=== PATIENT | male | born 1985 | race African-American/Black ===

== ENCOUNTER 2017-03-08 13:13 | Emergency (ER) | payer OTHER ==
[~2017-03-08] VITALS: Ht 175.3 cm; Wt 80.3 kg
[2017-03-08 13:16] VITALS: BP 122/81
[2017-03-08] MEDS ORDERED: ACETAMINOPHEN-1 EAC1 ORAL (13:19)
--- NOTE | 2017-03-08 14:14 | Emergency Room Report ---
History of Present Illness General Chief Complaint: Pain Source: Patient, Family Member Present Illness HPI 32 YO Male presents to the ED c/o History of chronic left hip pain required surgery at the age of 14 ,and had another surgery in 2001 where they placed bone graft. Pt having 10/10 in severity pain exacerbation in the left hip. patient recently has taken Tylenol No. 3 with no relief he has not followed up with his PMD denies new trauma or fall denies clicking denies erythema or increased temperature palpation denies fevers chills or swollen tender lymph nodes. Allergies: Coded Allergies: No Known Allergies (Unverified , 03/08/17) Patient History Past Medical History: see triage record Past Surgical History: none Pertinent Family History: none Reviewed Nursing Documentation: PMH: Agreed, PSxH: Agreed Review of Systems All Other Systems: negative except mentioned in HPI Physical Exam Vital Signs Date Time Temp Pulse Resp B/P (MAP) Pulse Ox O2 Delivery O2 Flow Rate FiO2 03/08/17 13:16 97.9 73 13 122/81 100 Room Air Sp02 EP Interpretation: reviewed, normal General Appearance: no apparent distress, alert, GCS 15, non-toxic Head: normocephalic, atraumatic Eyes: bilateral eye normal inspection, bilateral eye PERRL ENT: hearing grossly normal, normal voice Neck: full range of motion Respiratory: lungs clear, normal breath sounds, speaking full sentences Cardiovascular #1: regular rate, rhythm Rectal: deferred Musculoskeletal: back normal, gait/station normal, normal range of motion, tender - lateral ttp to the left hip mainly in the thigh muscle, FROM, ambulating FROM with pain. no erythema, carol old surgical scar noted. Neurologic: alert, oriented x3, responsive, motor strength/tone normal, sensory intact, normal gait, speech normal Skin: normal color, no rash, warm/dry, well hydrated Medical Decision Making PA Attestation Dr. palomino is my supervising Physician whom patient management has been discussed with. Diagnostic Impression: Primary Impression: Chronic left hip pain ER Course 32 YO Male presents to the ED c/o History of chronic left hip pain required surgery at the age of 14 ,and had another surgery in 2001 where they placed bone graft. Pt having 10/10 in severity pain exacerbation in the left hip. patient recently has taken Tylenol No. 3 with no relief he has not followed up with his PMD denies new trauma or fall denies clicking denies erythema or increased temperature palpation denies fevers chills or swollen tender lymph nodes. Ddx considered but are not limited to Fracture, dislocation, contusion, Sprain/ Strain/Spasm. just to name a few. Vital signs: are WNL, pt. is afebrile H&PE are most consistent with exacerbation of chronic hip pain, no evidence of D /L, infection or obvious deformity. ORDERS: - X-ray -Not indicated at this time no acute trauma. ED INTERVENTIONS: I do not suspect an emergent condition at this time. With current presentation, pt. is stable for close outpatient follow up and conservative treatment. D/w pt. to return promptly to ED with worsening or new symptoms.- Pt. (and or responsible democrat) verbalizes' understanding and agreement with proposed treatment plan. DISCHARGE: At this time pt. is stable for d/c to home. Will provide printed patient care instructions, and any necessary prescriptions. Care plan and follow up instructions have been discussed with the patient prior to discharge. Last Vital Signs Date Time Temp Pulse Resp B/P (MAP) Pulse Ox O2 Delivery O2 Flow Rate FiO2 03/08/17 13:16 97.9 73 13 122/81 100 Room Air Disposition: HOME, SELF-CARE Condition: Stable Scripts Ibuprofen* (MOTRIN*) 600 Mg Tablet 600 MG ORAL THREE TIMES A DAY, #30 TAB 0 Refills Prov: Lou Garcia 03/08/17 Lidocaine (Lidoderm) 1 Each Adh..patch 1 PATCH TOPIC DAILY, #25 PATCH 0 Refills Patch(es) may remain in place for up to 12 hours in any 24-hour period. Prov: Lou Garcia 03/08/17 Patient Instructions: Chronic Pain Additional Instructions: Take medications as directed. Follow up with a Primary Care Provider in 3-5 days, even if your symptoms have resolved. May require Orthopedic eval. or chronic pain management referral. --Please review list of primary care clinics, if you do not already have a primary care provider Return sooner to ED if new symptoms occur, or current symptoms become worse. - Please note that this Emergency Department Report was dictated using [employer] customer service representative technology software, occasionally this can lead to erroneous entry secondary to interpretation by the dictation equipment. Lou Garcia Mar 08, 2017 14:14
[2017-03-08] MEDS ORDERED: LIDODERM700 M1 TOPIC (14:15)
[2017-03-08] MEDS ORDERED: IBUPROFEN600 MG ORAL (14:15)
[2017-03-08] MEDS ORDERED: Ketorolac 60mg Inj IM ONE (14:15)
[2017-03-08 14:29] VITALS: BP 122/81
== END 2017-03-08 14:47 | disposition home or self-care (01) ==
LOC: EMR 13:52
DX: G89.29 Other chronic pain (principal); M25.552 Pain in left hip
CPT/HCPCS: 96372; 99283

== ENCOUNTER 2017-06-06 09:38 | Inpatient (IN) | payer OTHER ==
[2017-06-06] VITALS (9 sets, daily range): BP systolic 102–158; BP diastolic 62–86
[~2017-06-06] VITALS: Ht 175.3 cm; Wt 81.2 kg
[~2017-06-06 09:38] MED LIST: ACETAMINOPHEN-1 EAC1 ORAL; Dexamethasone 4mg/ml vial ONE; IBUPROFEN600 MG ORAL; LIDODERM700 M1 TOPIC; LR 1000ml ONE; Lidocaine 1% MPF 10mg/ml 5ml ONE; Midazolam 2mg/2ml Inj ONE; NS Irrig 1000ml ONE; Propofol 200mg/20ml IV ONE; Sterile Water Irrig 1000ml IRRIG ONE; fentaNYL 100 mcg/2 mL IV ONE
[2017-06-06] MEDS ORDERED: Ketorolac 60mg Inj IM ONE (10:15)
[2017-06-06] MEDS ORDERED: HYDROcodone/Acetamin 10/325 tab ORAL ONE (10:15)
--- NOTE | 2017-06-06 10:19 | Emergency Room Report ---
History of Present Illness General Chief Complaint: Male Urogenital Problems Source: Patient Present Illness HPI Patient presents with complaints of right testicular pain Also right hip pain and suprapubic discomfort Patient reports that he has not been sexually active over the past several months Denies any chest pain or short of breath denies any vomiting or diarrhea Initially patient did not report any history however after review of medical records and talking to the patient he now reports previous hip surgery And grafting Denies any trauma to the testicle Reports onset of pain was approximately 9:30 to 10 AM Allergies: Coded Allergies: No Known Allergies (Unverified , 03/08/17) Patient History Past Medical History: see triage record Pertinent Family History: none Reviewed Nursing Documentation: PMH: Agreed, PSxH: Agreed Nursing Documentation-PMH Past Medical History: No History, Except For Review of Systems All Other Systems: negative except mentioned in HPI Physical Exam Vital Signs Date Time Temp Pulse Resp B/P (MAP) Pulse Ox O2 Delivery O2 Flow Rate FiO2 06/06/17 09:39 97.0 49 22 158/74 98 Room Air 97.0 Sp02 EP Interpretation: reviewed, normal General Appearance: mild distress - Appears uncomfortable Head: normocephalic, atraumatic Eyes: bilateral eye PERRL, bilateral eye EOMI ENT: hearing grossly normal, normal pharynx Neck: full range of motion, supple Respiratory: chest non-tender, lungs clear Cardiovascular #1: regular rate, rhythm Gastrointestinal: non tender, soft Genitourinary: no CVA tenderness, other - Circumcised, tender on palpation of the right testicle, cremaster reflexes intact,however mild higher riding testicle on right Musculoskeletal: normal inspection Neurologic: alert, oriented x3, responsive Skin: normal color, no rash Lymphatic: no adenopathy Medical Decision Making Diagnostic Impression: Primary Impression: Testicular torsion ER Course Given the patient's presentation multiple differentials are considered Was concerning differential is testicular torsion Urethritis, epididymitis also entertained Given the patient's discomfort ultrasound was ordered upon arrival Speaking to the durable medical equipment technician that are concerning findings of torsion Case is discussed with urology Patient requiring emergency intervention All appropriate contacts are made and patient getting set for emergency surgery Patient provided with pain medication Attempt of detorsion is made without significant improvement And patient emergently transferred to OR for acute intervention Labs Test 06/06/17 10:45 06/06/17 11:30 Urine Color Yellow Urine Appearance Clear Urine pH 7 (4.5-8.0) Urine Specific [place] 1.015 (1.005-1.035) Urine Protein 2+ (NEGATIVE) Urine Glucose (UA) Negative (NEGATIVE) Urine Ketones 3+ (NEGATIVE) Urine Occult Blood Negative (NEGATIVE) Urine Nitrite Negative (NEGATIVE) Urine Bilirubin Negative (NEGATIVE) Urine Urobilinogen 1 MG/DL (0.0-1.0) Urine Leukocyte Esterase 1+ (NEGATIVE) Urine RBC 0-2 /HPF (0 - 0) Urine WBC 0-2 /HPF (0 - 0) Urine Squamous Epithelial Cells Occasional /LPF Urine Amorphous Sediment Occasional /LPF (NONE) Urine Bacteria Occasional /HPF (NONE) Urine Mucus Few /LPF (NONE/OCC) CT/MRI/US Diagnostic Results CT/MRI/US Diagnostic Results : Impression testicular ultrasoundIMPRESSION: Asymmetric engorgement of the right testicle with small right hydrocele and lack of definite color/power Doppler flow to the right testicle. Findings highly concerning for a right-sided testicular torsion, especially given history of severe right- sided testicular pain. Urology consult recommended. Findings discussed with Dr. Chan of the ED at approximately 11:10 AM. Last Vital Signs Date Time Temp Pulse Resp B/P (MAP) Pulse Ox O2 Delivery O2 Flow Rate FiO2 06/06/17 09:39 97.0 49 22 158/74 98 Room Air 97.0 Status: unchanged Disposition: ADMITTED INPATIENT Condition: Critical John Chan DO Jun 06, 2017 10:19
[2017-06-06 11:08] LABS: APPEARANCE,URINE CLEAR; BILIRUBIN, URINE NEGATIVE (NEGATIVE); GLUCOSE, URINE (UA) NEGATIVE (NEGATIVE); KETONES,URINE 3+ (NEGATIVE); LEUKOCYTE ESTERASE ,URINE 1+ (NEGATIVE); NITRITE,URINE NEGATIVE (NEGATIVE); PH,URINE 7 (4.5-8.0); PROTEIN,URINE 2+ (NEGATIVE); UROBILINOGEN,URINE 1 MG/DL (0.0-1.0)
[2017-06-06 11:15] LABS: COLOR,URINE YELLOW
[2017-06-06] MEDS ORDERED: HYDROmorphone 1mg/ml Carpuject IVP ONE (11:30)
--- NOTE | 2017-06-06 11:36 | Diagnostic Imaging Report ---
Indication: Right testicular pain Technique: With the plantar grayscale and color Doppler imaging of the testicles/scrotum Comparison: None Findings: There is asymmetric enlargement of the right testicle. The right testicle measures 4.4 x 2.5 x 3.1 cm. The left testicle measures 3.3 x 2 x 3 cm. There is a small right hydrocele. There is asymmetric flow to the testicles on raphae view, with power Doppler flow noted on the left and none noted on the right (image 4). No definite color or power Doppler flow is demonstrated to the right testicle on dedicated views. No arterial or venous waveforms can be identified in the right testicle. This is in contrast to color/power Doppler imaging of the left testicle which documents normal color/power Doppler flow. No hydrocele is noted on the left. No testicular masses are seen bilaterally. IMPRESSION: Asymmetric engorgement of the right testicle with small right hydrocele and lack of definite color/power Doppler flow to the right testicle. Findings highly concerning for a right-sided testicular torsion, especially given history of severe right-sided testicular pain. Urology consult recommended. Findings discussed with Dr. Chan of the ED at approximately 11:10 AM.
[2017-06-06 12:13] LABS: BASOPHILS % (AUTO) 0.7 % (0.0-2.0); EOSINOPHILS % (AUTO) 0.3 % (0.0-3.0); HEMATOCRIT 45.6 % (42.0-52.0); HEMOGLOBIN 15.2 G/DL (14.2-18.0); LYMPHOCYTES % (AUTO) 19.3 % (20.0-45.0); MEAN CORPUSCULAR VOLUME 99 FL (80-99); MONOCYTES % (AUTO) 7.7 % (1.0-10.0); PLATELET COUNT 164 K/UL (150-450); RED BLOOD COUNT 4.58 M/UL (4.70-6.10); WHITE BLOOD COUNT 6.7 K/UL (4.8-10.8)
[2017-06-06] MEDS ORDERED: Morphine Sulfate 4mg/ml Inj IVP ONE (12:15)
[2017-06-06 12:22] LABS: ANION GAP 8 mmol/L (5-15); BLOOD UREA NITROGEN 16 mg/dL (7-18); CALCIUM 8.6 MG/DL (8.5-10.1); CARBON DIOXIDE 28 MMOL/L (21-32); CHLORIDE 104 MMOL/L (98-107); CREATININE 1.3 MG/DL (0.55-1.30); SODIUM 140 MMOL/L (136-145)
[2017-06-06] MEDS ORDERED: NeoSporin Gu Irrig 1ml Amp IRRIG ONE (12:23)
[2017-06-06] MEDS ORDERED: Bacitracin 50000 Units Vial ONE (12:23)
--- NOTE | 2017-06-06 12:39 | Pre-Procedure Note/Attestation ---
Pre-Procedure Note/Attestation Complete Prior to Procedure Planned Procedure: right Procedure Narrative: right orchidopexy vs right orchiectomy Indications for Procedure Pre-Operative Diagnosis: right testicular torsion Attestation I attest that I discussed the nature of the procedure; its benefits; risks and complications; and alternatives (and the risks and benefits of such alternatives ), prior to the procedure, with the patient (or the patient's legal payable representative). I attest that, if there was a reasonable possibility of needing a blood transfusion, the patient (or the patient's legal payable representative) was given the [facility] standardized written summary, pursuant to the [place] Blood Safety Act ([place] Health and Safety Code # 1645, as amended). I attest that I re-evaluated the patient just prior to the surgery and that there has been no change in the patient's H&P, except as documented below: Varun Aragon MD Jun 06, 2017 12:39
[2017-06-06] MEDS ORDERED: LR 1000ml 1,000 ML IVLG SCH (13:01)
--- NOTE | 2017-06-06 13:01 | Anethesia Preoperative Eval ---
Anesthesia Pre-op PMH/ROS General Date of Evaluation: Jun 06, 2017 Time of Evaluation: 12:31 Anesthesiologist: Alirio ASA Score: ASA 2 - Emergency Mallampati Score Class I : Soft palate, uvula, fauces, pillars visible Class II: Soft palate, uvula, fauces visible Class III: Soft palate, base of uvula visible Class IV: Only hard plate visible Mallampati Classification: Class I Surgeon: Mahesh Diagnosis: Testcular Torsion Surgical Procedure: Repair Of R Ruptured Testicle Anesthesia History: none Family History: no anesthesia problems Allergies: Coded Allergies: No Known Allergies (Unverified , 03/08/17) Medications: see eMAR Past Medical History PSxH Narrative: L Hip SX Anesthesia Pre-op Phys. Exam Physician Exam Last Vital Signs Date Time Temp Pulse Resp B/P (MAP) Pulse Ox O2 Delivery O2 Flow Rate FiO2 06/06/17 12:12 97.0 06/06/17 10:20 22 158/74 98 Room Air 06/06/17 09:39 49 Constitutional: NAD Neurologic: CN 2-12 intact Cardiovascular: RRR Respiratory: CTA Gastrointestinal: S/NT/ND Airway Exam Mallampati Score: Class I MO: full ROM: full Teeth: missing, intact Anesthesia Pre-op A/P Labs Hematology Test 06/06/17 11:30 White Blood Count 6.7 K/UL (4.8-10.8) Red Blood Count 4.58 M/UL (4.70-6.10) L Hemoglobin 15.2 G/DL (14.2-18.0) Hematocrit 45.6 % (42.0-52.0) Mean Corpuscular Volume 99 FL (80-99) Mean Corpuscular Hemoglobin 33.3 PG (27.0-31.0) H Mean Corpuscular Hemoglobin Concent 33.4 G/DL (32.0-36.0) Red Cell Distribution Width 11.0 % (11.6-14.8) L Platelet Count 164 K/UL (150-450) Mean Platelet Volume 10.3 FL (6.5-10.1) H Neutrophils (%) (Auto) 72.0 % (45.0-75.0) Lymphocytes (%) (Auto) 19.3 % (20.0-45.0) L Monocytes (%) (Auto) 7.7 % (1.0-10.0) Eosinophils (%) (Auto) 0.3 % (0.0-3.0) Basophils (%) (Auto) 0.7 % (0.0-2.0) Coagulation Test 06/06/17 11:30 Prothrombin Time 10.0 SEC (9.30-11.50) Prothromb Time International Ratio 1.0 (0.9-1.1) Chemistry Test 06/06/17 11:30 Sodium Level 140 MMOL/L (136-145) Potassium Level 4.0 MMOL/L (3.5-5.1) Chloride Level 104 MMOL/L (98-107) Carbon Dioxide Level 28 MMOL/L (21-32) Anion Gap 8 mmol/L (5-15) Blood Urea Nitrogen 16 mg/dL (7-18) Creatinine 1.3 MG/DL (0.55-1.30) Estimat Glomerular Filtration Rate > 60 mL/min (>60) Glucose Level 114 MG/DL (74-106) H Calcium Level 8.6 MG/DL (8.5-10.1) Risk Assessment & Plan Assessment: ASA 2E Plan: GA, BIS Status Change Before Surgery: No Pre-Antibiotics Dru Grams Ancef IV Given Within 1 Hr of Incision: Yes Time Given: 12:41 Iain Amezquita MD Jun 06, 2017 13:00
--- NOTE | 2017-06-06 13:06 | Immediate Post-Op Evaluation ---
Immediate Post-Op Evalulation Immediate Post-Op Evalulation Procedure: Repair Of R Ruptured Testicle Date of Evaluation: Jun 06, 2017 Time of Evaluation: 13:34 IV Fluids: 800 LR Blood Products: 0 Estimated Blood Loss: 10 Urinary Output: 0 Blood Pressure Systolic: 102 Blood Pressure Diastolic: 71 Pulse Rate: 47 Respiratory Rate: 16 O2 Sat by Pulse Oximetry: 100 Temperature (Fahrenheit): 97.6 Pain Score (1-10): 2 Nausea: No Vomiting: No Complications 0 Patient Status: awake, reacts, patent, extubated, none Hydration Status: adequate Dru GramsAncef IV Given Within 1 Hr of Incision: Yes Time Given: 12:41 Iain Amezquita MD Jun 06, 2017 13:06
[2017-06-06] MEDS ORDERED: DiphenhydrAMINE 50mg/ml Inj IVP PRN (13:15)
[2017-06-06] MEDS ORDERED: LORazepam Inj 2mg/ml 1ml IV PRN (13:15)
[2017-06-06] MEDS ORDERED: Atropine Inj 1mg/10ml Syr IV PRN (13:15)
[2017-06-06] MEDS ORDERED: Midazolam 2mg/2ml Inj IVP PRN (13:15)
[2017-06-06] MEDS ORDERED: HYDROcodone/Acetamin 7.5/325 tab ORAL PRN (13:15)
[2017-06-06] MEDS ORDERED: Norco 5mg/325mg tab ORAL PRN (13:15)
[2017-06-06] MEDS ORDERED: fentaNYL 100 mcg/2 mL IV PRN (13:15)
[2017-06-06] MEDS ORDERED: Hydromorphone 0.5mg/0.5ml inj IVP PRN (13:15)
[2017-06-06] MEDS ORDERED: Ketorolac 30mg Inj IV PRN ×2 (13:15)
[2017-06-06] MEDS ORDERED: oxyCODONE HCL/Acetaminophen 5/325mg ORAL PRN (13:15)
[2017-06-06] MEDS ORDERED: Labetalol 5mg/ml 20ml vial IV PRN (13:15)
--- NOTE | 2017-06-06 13:15 | Brief Operative Note ---
Immediate Post Operative Note Operative Note Pre-op Diagnosis: right testicular torsion Procedure: right orchidopexy Post-op Diagnosis: same Post-op Diagnosis: same as pre-op Surgeon: Grant Aragon Anesthesia: general Specimen: none Complications: none Fluids: 500 Estimated Blood Loss: minimal Implant(s) used?: No Varun Aragon MD Jun 06, 2017 13:15
[2017-06-06] MEDS ORDERED: Acetaminophen (Non formulary) 100 ML IV ONE (13:30)
[2017-06-06] MEDS: HYDROmorphone 1mg/ml Carpuject IVP PRN ×2 (15:57→22:31)
[2017-06-06] MEDS: D5 1/2NS w/KCl 20mEq 1,000 ML IV SCH ×2 (16:00→22:30)
[2017-06-06] MEDS: Docusate 100mg cap ORAL SCH (18:30)
[2017-06-06] MEDS: Ketorolac 30mg Inj IM PRN (18:30)
[2017-06-06] MEDS: ceFAZolin sod 2 GM in D5W 110 ML IV SCH (21:23)
--- NOTE | 2017-06-06 22:30 | Consultation ---
DATE OF CONSULTATION: 06/06/2017 EMERGENCY CONSULTATION REPORT REASON FOR CONSULTATION: Right testicular torsion. I was called from the emergency room less than an hour ago. The patient presented to the ER with right testicular pain that was lasting approximately one and half hours. They called an ultrasound. lawn care technician did not see any blood flow. Radiologist read this as an acute testicular torsion. The patient denies any direct trauma to the testicle. He said he went to the bathroom and started feeling pain. He never had testicular torsions before. PAST MEDICAL HISTORY: His medical history on a quick run prior to taking to the operating room seems to be negative. He is not taking any acute medications. He is a young fairly healthy gentleman. REVIEW OF SYSTEMS: Right testicular pain. Other systems negative. PHYSICAL EXAMINATION: Right testicle is swollen, slightly in upward position, partial cremasteric reflex is present. Penile and rectal exam is normal. LABORATORY DATA: Reviewed. ASSESSMENT AND PLAN: Acute testicular torsion. The patient is taken to the operating room right now . As we speak, he was placed on the operating table. I instructed the patient that it will be either orchidopexy or orchiectomy depending on the viability of the testicle. He understands the nature of the procedure as well as all potential complications. Varun Aragon M.D. DR: LUIS ALFREDO JOB#: [id number] CC:
[2017-06-06] MEDS ORDERED: PREZCOBIX 8001 EACH PO (23:52)
[2017-06-06] MEDS ORDERED: DESCOVY 200-251 EACH PO (23:52)
[2017-06-07] VITALS: BP 126/58
[2017-06-07 04:00] VITALS: BP 115/55
[2017-06-07] MEDS: ceFAZolin sod 2 GM in D5W 110 ML IV SCH (04:13)
[2017-06-07] MEDS: Ketorolac 30mg Inj IM PRN (04:14)
[2017-06-07 07:03] LABS: HEMATOCRIT 40.4 % (42.0-52.0); MEAN CORPUSCULAR VOLUME 99 FL (80-99); PLATELET COUNT 161 K/UL (150-450); WHITE BLOOD COUNT 14.3 K/UL (4.8-10.8)
[2017-06-07 07:10] LABS: ANION GAP 6 mmol/L (5-15); BLOOD UREA NITROGEN 18 mg/dL (7-18); CALCIUM 7.9 MG/DL (8.5-10.1); CARBON DIOXIDE 27 MMOL/L (21-32); CHLORIDE 105 MMOL/L (98-107); CREATININE 1.3 MG/DL (0.55-1.30); POTASSIUM 4.3 MMOL/L (3.5-5.1); SODIUM 137 MMOL/L (136-145)
[2017-06-07 08:00] VITALS: BP 130/72
--- NOTE | 2017-06-07 08:25 | 48 Hour Post Anesthesia Eval ---
Post Anesthesia Evaluation Procedure: Repair Of R Ruptured Testicle Date of Evaluation: Jun 07, 2017 Time of Evaluation: 08:23 Blood Pressure Systolic: 115 0: 55 Pulse Rate: 58 Respiratory Rate: 16 Temperature (Fahrenheit): 97.5 O2 Sat by Pulse Oximetry: 100 Airway: patent Nausea: No Vomiting: No Pain Intensity: 5 Hydration Status: adequate Cardiopulmonary Status: stable Mental Status/LOC: patient returned to baseline Post-Anesthesia Complications: none Follow-up care needed: N/A KARTHIKEYAN DORADO Jun 07, 2017 08:25
[2017-06-07] MEDS: Docusate 100mg cap ORAL SCH ×2 (08:53→18:33)
[2017-06-07] MEDS: HYDROmorphone 1mg/ml Carpuject IVP PRN ×2 (08:54→15:49)
[2017-06-07] MEDS: D5 1/2NS w/KCl 20mEq 1,000 ML IV SCH (09:11)
[2017-06-07 12:00] VITALS: BP 127/79
--- NOTE | 2017-06-07 13:44 | History and Physical ---
History of Present Illness General Date patient seen: Jun 07, 2017 Reason for Hospitalization: Male Urogenital Problems Present Illness HPI 32 year old male with PMHx presents with complaints of right testicular pain. He was diagnosed to have testicular torsion and underwent surgical correction. Allergies: Coded Allergies: No Known Allergies (Unverified , 03/08/17) Medication History Scheduled Ibuprofen* (Motrin*), 600 MG ORAL THREE TIMES A DAY Lidocaine (Lidoderm), 1 PATCH TOPIC DAILY Scheduled PRN Acetaminophen With Codeine (T#3) (Tylenol #3 Tab*), 1 TAB ORAL DAILY PRN for For Pain, (Reported) Miscellaneous Medications Darunavir/Cobicistat (Prezcobix 800 mg-150 mg Tablet), 1 EACH PO, (Reported) Emtricitabine/Tenofov Alafenam (Descovy 200-25 mg Tablet), 1 EACH PO, (Reported) Patient History Healthcare decision maker Resuscitation status Full Code Advanced Directive on File Review of Systems All Other Systems: negative except mentioned in HPI Physical Exam General Appearance: WD/WN, no apparent distress Lines, tubes and drains: peripheral HEENT: normocephalic, atraumatic Neck: non-tender, normal alignment Respiratory/Chest: chest wall non-tender, lungs clear Cardiovascular/Chest: normal peripheral pulses, regular rhythm Abdomen: normal bowel sounds Extremities: normal range of motion Last 24 Hour Vital Signs Date Time Temp Pulse Resp B/P (MAP) Pulse Ox O2 Delivery O2 Flow Rate FiO2 06/07/17 12:00 98.0 70 20 127/79 99 Room Air 98.0 06/07/17 09:24 97.5 06/07/17 08:54 97.5 06/07/17 08:25 207.5 58 16 100 06/07/17 08:00 98.0 56 18 130/72 100 Room Air 98.0 06/07/17 04:00 97.5 58 16 115/55 100 Room Air 97.5 06/07/17 00:00 97.9 53 16 126/58 98 Room Air 97.9 06/06/17 20:00 97.8 65 17 106/70 100 Room Air 97.8 06/06/17 19:00 98.0 06/06/17 18:30 98.0 06/06/17 15:57 98.0 06/06/17 15:00 98.3 49 20 114/62 100 Nasal Cannula 2.0 98.3 06/06/17 14:00 98.0 48 18 127/68 100 Nasal Cannula 2.0 98.0 06/06/17 13:49 98.0 61 20 139/86 100 Nasal Cannula 3.0 98.0 06/06/17 13:45 61 20 140/72 100 Nasal Cannula 3.0 Intake and Output 06/06/17 06/07/17 19:00 07:00 Intake Total 800 ml 900 ml Output Total 10 ml 450 ml Balance 790 ml 450 ml Intake Oral 0 ml 300 ml IV Total 800 ml 600 ml Output Urine Total 450 ml Estimated Blood Loss 10 ml Laboratory Tests Test 06/07/17 06:20 White Blood Count 14.3 K/UL (4.8-10.8) #H Red Blood Count 4.10 M/UL (4.70-6.10) L Hemoglobin 14.0 G/DL (14.2-18.0) L Hematocrit 40.4 % (42.0-52.0) L Mean Corpuscular Volume 99 FL (80-99) Mean Corpuscular Hemoglobin 34.2 PG (27.0-31.0) H Mean Corpuscular Hemoglobin Concent 34.7 G/DL (32.0-36.0) Red Cell Distribution Width 11.0 % (11.6-14.8) L Platelet Count 161 K/UL (150-450) Mean Platelet Volume 10.9 FL (6.5-10.1) H Neutrophils (%) (Auto) % (45.0-75.0) Lymphocytes (%) (Auto) % (20.0-45.0) Monocytes (%) (Auto) % (1.0-10.0) Eosinophils (%) (Auto) % (0.0-3.0) Basophils (%) (Auto) % (0.0-2.0) Differential Total Cells Counted 100 Neutrophils % (Manual) 87 % (45-75) H Lymphocytes % (Manual) 10 % (20-45) L Monocytes % (Manual) 3 % (1-10) Eosinophils % (Manual) 0 % (0-3) Basophils % (Manual) 0 % (0-2) Band Neutrophils 0 % (0-8) Platelet Estimate Adequate Platelet Morphology Normal Red Blood Cell Morphology Normal Sodium Level 137 MMOL/L (136-145) Potassium Level 4.3 MMOL/L (3.5-5.1) Chloride Level 105 MMOL/L (98-107) Carbon Dioxide Level 27 MMOL/L (21-32) Anion Gap 6 mmol/L (5-15) Blood Urea Nitrogen 18 mg/dL (7-18) Creatinine 1.3 MG/DL (0.55-1.30) Estimat Glomerular Filtration Rate > 60 mL/min (>60) Glucose Level 149 MG/DL (74-106) H Calcium Level 7.9 MG/DL (8.5-10.1) L Height (Feet): 5 Height (Inches): 9.00 Weight (Pounds): 179 Medications Current Medications Medications (Trade) Dose Ordered Sig/Primo Route PRN Reason Start Time Stop Time Status Last Admin Dose Admin Dextrose/ Electrolytes 1,000 ml @ 100 mls/hr Q10H IV 06/06/17 16:00 07/06/17 15:59 06/07/17 09:11 Docusate Sodium (Colace) 100 mg TWICE A DAY ORAL 06/06/17 18:00 07/06/17 17:59 06/07/17 08:53 Hydromorphone HCl (Dilaudid) 1 mg Q3H PRN IVP pain score 4-6 06/06/17 15:40 06/13/17 15:39 06/07/17 08:54 Ketorolac Tromethamine (Toradol 30mg) 30 mg Q6H PRN IM Breakthrough Pain 06/06/17 13:15 06/11/17 13:14 06/07/17 04:14 Non-Formulary Medication (Non-Formulary Med) 1 ea QHS ORAL 06/07/17 21:00 07/07/17 20:59 UNV Non-Formulary Medication (Non-Formulary Med) 1 ea QHS ORAL 06/07/17 21:00 07/07/17 20:59 UNV Ondansetron HCl (Zofran) 4 mg Q6H PRN IVP Nausea & Vomiting 06/06/17 13:15 07/06/17 13:14 Temazepam (Restoril) 7.5 mg HSPRN PRN ORAL Insomnia 06/06/17 13:15 06/13/17 13:14 Assessment/Plan Problem List: (1) Testicular torsion ICD Codes: N44.00 - Torsion of testis, unspecified SNOMED: [id number] Assessment/Plan doing well after the surgery dc home oral abx analgesics Etta Field MD Jun 07, 2017 13:44
[2017-06-07] MEDS ORDERED: KEFLEX250 MG ORAL (15:13)
[2017-06-07 16:00] VITALS: BP 116/66
--- NOTE | 2017-06-08 15:57 | Discharge Summary ---
Discharge Summary Hospital Course Date of Admission Jun 06, 2017 at 12:26 Date of Discharge Jun 07, 2017 at 22:04 Admitting Diagnosis Right Testicular Torsion Reason for Hospitalization: need urgent surgery HPI Camacho Mccloud is a 32 year old male who was admitted on Jun 06, 2017 at 12:26 for Right Testicular Torsion Consultations Aline Uribe-IM Procedures s/p 05/28/[address] Aragon right orchidopexy Hospital Course s/p surgery course of recovery uneventful pain management, controlled able to void w/out difficulties ambulated tolerated diet ART therapy resumed stable for dc outpt f/up as advised FINAL DIAGNOSIS Acute right testicular torsion s/p right orchidopexy HIV status Discharge Medications Continued Medications: Acetaminophen With Codeine (T#3) (Tylenol #3 Tab*) Y Tab 1 TAB ORAL DAILY PRN for For Pain, TAB Darunavir/Cobicistat (Prezcobix 800 mg-150 mg Tablet) 1 Each Tablet 1 EACH PO, TAB Emtricitabine/Tenofov Alafenam (Descovy 200-25 mg Tablet) 1 Each Tablet 1 EACH PO, TAB Lidocaine (Lidoderm) 1 Each Adh..patch 1 PATCH TOPIC DAILY, #25 PATCH 0 Refills Patch(es) may remain in place for up to 12 hours in any 24-hour period. Discontinued Medications: Ibuprofen* (Motrin*) 600 Mg Tablet 600 MG ORAL THREE TIMES A DAY, #30 TAB 0 Refills Discharge Condition Upon Discharge: stable Discharge Disposition Patient was discharged to Home (01) Discharge Diagnoses: Discharge Instructions Discharge Instructions Special Instructions I have been assigned to complete a D/C Summary on this account. I was not involved in the patient management Melina Haines NP ([place]) Jun 08, 2017 15:57
--- NOTE | 2017-06-08 23:31 | Operative Note - Dictated ---
DATE OF OPERATION: 06/06/2017 PREOPERATIVE DIAGNOSIS: Right testicular torsion. POSTOPERATIVE DIAGNOSIS: Right testicular torsion. OPERATION: Scrotal exploration with of the right testicular torsion, right orchidopexy. OPERATING SURGEON: Varun Aragon M.D. ANESTHESIA: General. FINDINGS: Right testicular torsion. INDICATION FOR SURGERY: The patient presented with acute pain in the right testicle, approximately a hour and a half in duration. He was immediately and brought to the operating room for further exploration. Treatment options such as orchidopexy versus orchiectomy was explained to the patient in great length, the nature of the procedure and signed the consent. DESCRIPTION OF THE PROCEDURE: He was brought to the operating room, placed in supine position, prepped and draped in standard fashion. Under general anesthesia, a right mike-scrotal incision was made. Right testicle was explored. Testicle was opened up and brought outside and found to be cyanotic, blue and nonvascular. There were some adhesions around the blood vessels. The torsion was reversed and the testicle was heated with some warm normal saline. It started to pink up and vascular Doppler was made showing some presence of the blood supply to the testicle. After 10 minutes of warming, testicle was more pink and less cyanotic. After that, two sutures were placed into the right hemiscrotum fixing the scrotum to the testicle in nonreversible fashion. After the orchidopexy was completed and hemostasis, scrotum was closed sequentially in three different layers and the skin was closed as well. Dressing, scrotal support. The patient tolerated the procedure well. No complications. Varun Aragon M.D. DR: RAUDEL JOB#: [id number] CC:
== END 2017-06-07 22:04 | disposition home or self-care (01) | DRG 483 ==
LOC: EMR 11:23 → EDBEDREQ 12:19 → 4E 12:26 → 3E 20:00
PROC: 0VS90ZZ Reposition Right Testis, Open Approach (ICD-10-PCS; principal; 2017-06-06 12:45)
DX: N44.00 Torsion of testis, unspecified (principal)
CPT/HCPCS: 36415; 76870; 80048; 81003; 85007; 85025; 85610; 94003; 94150; 96360; 96361; 96372; 96374; 99285; C8957; J2250; J2405

== ENCOUNTER 2017-06-07 22:37 | Emergency (ER) | payer OTHER ==
[~2017-06-07] VITALS: Ht 175.3 cm; Wt 77.1 kg
[~2017-06-07 22:37] MED LIST changes: +DESCOVY 200-251 EACH PO; -Dexamethasone 4mg/ml vial ONE; +KEFLEX250 MG ORAL; -LR 1000ml ONE; -Lidocaine 1% MPF 10mg/ml 5ml ONE; -Midazolam 2mg/2ml Inj ONE; -NS Irrig 1000ml ONE; +PREZCOBIX 8001 EACH PO; -Propofol 200mg/20ml IV ONE; -Sterile Water Irrig 1000ml IRRIG ONE; -fentaNYL 100 mcg/2 mL IV ONE
[2017-06-08 00:15] VITALS: BP 128/81
[2017-06-08 01:32] VITALS: BP 113/60
[2017-06-08 01:33] VITALS: BP 128/81
--- NOTE | 2017-06-08 04:55 | Emergency Room Report ---
History of Present Illness General Chief Complaint: Male Urogenital Problems Source: Patient Present Illness HPI 32-year-old male presents ED with bleeding from his scrotum. Patient was [place] today [place] [facility] [place] repair of testicular torsion. Patient states there is profuse bleeding despite dressings. Denies any pain. Denies taking any blood thinners. No other aggravating relieving factors. Denies any other associated symptoms Allergies: Coded Allergies: No Known Allergies (Unverified , 03/08/17) Patient History Past Medical History: none Past Surgical History: other - testicular torsion Pertinent Family History: none Social History: Denies: smoking, alcohol use, drug use Immunizations: UTD Reviewed Nursing Documentation: PMH: Agreed, PSxH: Agreed Nursing Documentation-PMH Hx Cardiac Problems: No Hx Cancer: No Hx Gastrointestinal Problems: No - Testicular torsion, chronic left hip pain Hx Neurological Problems: No Review of Systems All Other Systems: negative except mentioned in HPI Physical Exam Vital Signs Date Time Temp Pulse Resp B/P (MAP) Pulse Ox O2 Delivery O2 Flow Rate FiO2 06/07/17 23:22 98.3 59 18 128/81 98 Room Air 98.2 Sp02 EP Interpretation: reviewed, normal General Appearance: no apparent distress, alert, GCS 15, non-toxic Head: normocephalic Eyes: bilateral eye normal inspection, bilateral eye PERRL ENT: normal ENT inspection Neck: normal inspection Respiratory: normal inspection Cardiovascular #1: normal inspection Gastrointestinal: normal inspection Genitourinary: other - bleeding from scrotum. sutures in place Musculoskeletal: normal inspection Neurologic: alert, oriented x3, responsive, motor strength/tone normal, sensory intact, speech normal Psychiatric: normal inspection Skin: normal inspection Lymphatic: normal inspection Procedures Laceration/Wound Repair Laceration/Wound Repair : Consent: Verbal Wound Location: other - scrotum Wound Explored: clean Betadine Prep?: No Anesthesia: Lidocaine w/ Epi Wound Debrided: minimal Wound Repaired With: sutures Suture Size/Type: 4:0, proline Layer Closure?: No Sterile Dressing Applied?: Yes Splint Applied?: No Sling Applied?: No Patient Tolerated: Well Complications: None Medical Decision Making Diagnostic Impression: Primary Impression: Postoperative bleeding from incision ER Course Hospital Course 32-year-old male presents ED bleeding from scrotum. Status post repair of testicular torsion Clinical course Patient placed on stretcher. After initial history and physical exam reveals male in no acute distress. There is point bleeding from a localized site on the scrotum. applying point pressure, bleeding was mostly controlled. I applied 2 sutures to control the bleeding. On reassessment bleeding has stopped. Pressure dressing applied. Recommend close follow-up with urology Diagnosis - postoperative bleeding from incision Stable and discharged to home. wound Care instructions given. Followup with urology. Return to ED if any signs of infection develop Last Vital Signs Date Time Temp Pulse Resp B/P (MAP) Pulse Ox O2 Delivery O2 Flow Rate FiO2 06/08/17 01:33 98.2 59 18 128/81 98 Room Air 98.2 Status: improved Disposition: HOME, SELF-CARE Condition: Stable Referrals: Varun Aragon MD Patient Instructions: Testicular Torsion ADITYA LOVELL M.D. Jun 08, 2017 04:55
== END 2017-06-08 01:33 | disposition home or self-care (01) ==
LOC: EMR 23:55
DX: L76.22 Postprocedural hemorrhage of skin and subcutaneous tissue following other procedure (principal); S31.30XA Unspecified open wound of scrotum and testes, initial encounter; Y83.8 Other surgical procedures as the cause of abnormal reaction of the patient, or of later complication, without mention of misadventure at the time of the procedure; Y92.9 Unspecified place or not applicable
CPT/HCPCS: 12001; 99284; Z7502